=== PATIENT | male | born 1960 | race Caucasian/White ===

== ENCOUNTER 2021-02-04 15:16 | Emergency (ER) | payer OTHER ==
[~2021-02-04] VITALS: Ht 175.3 cm; Wt 82.1 kg
[~2021-02-04 15:16] MED LIST: MOTRIN800 MG PO; NORCO 5-325 TA1 EACH PO; PRAVASTATIN SOD40 MG
[2021-02-04] MEDS ORDERED: SODIUM CHLORIDE 0.9% 100 ML ONE (15:29)
[2021-02-04] MEDS ORDERED: CASIRIVIMAB/IMDEVIMAB 10 ML in SODIUM CHLORIDE 0.9% 100 ML IV ONE (15:30)
== END 2021-02-04 16:10 | disposition home or self-care (01) ==
LOC: ER 15:20
DX: U07.1 COVID-19 (principal); E78.5 Hyperlipidemia, unspecified; E78.00 Pure hypercholesterolemia, unspecified
CPT/HCPCS: 99282; J7050